=== PATIENT | male | born 1980 | race Caucasian/White ===

== ENCOUNTER 2018-01-24 04:03 | Emergency (ER) | payer OTHER ==
[~2018-01-24] VITALS: Ht 185.4 cm; Wt 99.8 kg
--- NOTE | 2018-01-24 04:25 | NUR ---
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 PT IS AMBULATORY WT SLIGHT WEAKNESS, A/O X 3. ON ROOM AIR WT 02 SAT 96% AND ABOVE. NO C/O PAIN AT THIS TIME. PLACED ON GURNEY AND CONNECTED TO MANAGER COPY. VS TAKEN. AWAITING FOR MD EXAMINATION. SAFETY PRECAUTION NOTED.
--- NOTE | 2018-01-24 04:40 | NUR ---
DR. LUNSFORD AT BEDSIDE TO EXAMINE PT.
[2018-01-24 05:45] LABS: BASOPHILS % (AUTO) 0.3 % (0.0-2.0); EOSINOPHILS % (AUTO) 1.5 % (0.0-6.0); HEMATOCRIT 44 % (39-51); HEMOGLOBIN 14.6 g/dL (13.5-17.5); LYMPHOCYTES # (AUTO) 1.6 /CMM (0.8-4.8); LYMPHOCYTES % (AUTO) 20.3 % (20.0-44.0); MEAN CORPUSCULAR HGB CONC 33 g/dl (31.0-36.0); MEAN CORPUSCULAR VOLUME 85 fL (80-96); MONOCYTES # (AUTO) 0.6 /CMM (0.1-1.30); MONOCYTES % (AUTO) 7.2 % (2.0-12.0); NEUTROPHILS # (AUTO) 5.7 /CMM (1.8-8.9); NEUTROPHILS % (AUTO) 70.7 % (43.0-81.0); PLATELET COUNT (AUTO) 220 /CMM (150-450); RDW COEFFICIENT OF VARIATION 13.4 (11.5-15.0); RED BLOOD CELL COUNT(AUTO) 5.22 MIL/uL (4.5-6.0); WHITE BLOOD COUNT (AUTO) 8.1 K/uL (4.3-11.0)
--- NOTE | 2018-01-24 05:55 | NUR ---
LAC GAUGE 20 IV SITE INSERTED WT GOOD BLOOD RETURN. BLOOD DRAWN. 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 Addendum: 01/24/18 at 0607 by SCORDERO LEFT AC GAUGE 18 INSERTED (NOT GAUGE 20).
[2018-01-24] MEDS: IV NS 0.9% 1,000 ML BAG IV ONE (05:56)
[2018-01-24 05:57] LABS: CALCIUM, SERUM 8.5 mg/dL (8.5-10.1); CARBON DIOXIDE 26 mmol/L (21-32); CHLORIDE 102 mmol/L (98-107); CREATININE 1.3 mg/dL (0.6-1.3); GLUCOSE 143 mg/dL (74-106); POTASSIUM 3.3 mmol/L (3.5-5.1); SODIUM SERUM 137 mmol/L (136-145); UREA NITROGEN, BLOOD 24 mg/dL (7-18)
[2018-01-24 06:05] LABS: ALANINE AMINOTRANSFERASE 45 U/L (12-78); ALBUMIN 4.1 g/dL (3.4-5.0); ALKALINE PHOSPHATASE 53 U/L (46-116); ASPARTATE AMINOTRANSFERASE 22 U/L (15-37); BILIRUBIN,DIRECT 0.1 mg/dL (0.0-0.2); BILIRUBIN,TOTAL 0.5 mg/dL (0.2-1.0); TOTAL PROTEIN, SERUM 7.4 g/dL (6.4-8.2)
[2018-01-24 06:06] LABS: ACETAMINOPHEN 0 ug/ml (10-30); ALCOHOL, BLOOD < 3 mg/dL (0-0); SALICYLATE 1.1 mg/dL (2.8-20.0)
[2018-01-24 06:16] LABS: APPEARANCE,URINE CLEAR (CLEAR); BILIRUBIN,URINE NEGATIVE (NEGATIVE); BLOOD, URINE NEGATIVE Ery/uL (NEGATIVE); COLOR,URINE YELLOW (YELLOW); KETONES,URINE NEGATIVE (NEGATIVE); LEUKOCYTE ESTERASE ,URINE NEGATIVE (NEGATIVE); NITRITE, URINE NEGATIVE (NEGATIVE); PROTEIN,URINE NEGATIVE (NEGATIVE); UGLUCOSE NEGATIVE (NEGATIVE); UROBILINOGEN,URINE 0.2 EU/dL (0.2)
[2018-01-24] MEDS ORDERED: POTASSIUM CHLORIDE 20 MEQ TAB.PRT.SR PO ONE ×2 (06:27→06:30)
--- NOTE | 2018-01-24 06:30 | NUR ---
DR. LOU AT BEDSIDE TO FURTHER EVALUATE PT.
[2018-01-24] MEDS ORDERED: LORAZEPAM INJ 2 MG/ML VIAL ONE (06:43)
[2018-01-24] MEDS ORDERED: LORAZEPAM INJ 2 MG/ML VIAL IV ONE (07:00)
--- NOTE | 2018-01-24 08:43 | NUR ---
Pt alert and oriented x 4. Pt found in supine position. Easily arousable and no respiratory distress. Vital signs taken. Attempted to walk pt. Pt complains of dizziness and unstable on feet after attempt to walk. MD Asher notified. Pt return to bed and placed on rn cardiac rehab. Will continue to monitor pt.
--- NOTE | 2018-01-24 09:45 | NUR ---
PT ALERT ORIENTED ABLE TO WALK WITH STEADY GAIT PT WANTS TO USE uBER TO GO HOME MD LOU AWARE AND APPROVES OF PLAN PIV REMOVED FROMLEFT AC WITH TIP INTACT
[2018-01-24 09:54] VITALS: BP 119/56
== END 2018-01-24 09:55 | disposition home or self-care (01) ==
LOC: ER 04:14
DX: T40.7X5A Adverse effect of cannabis (derivatives), initial encounter (principal); G93.40 Encephalopathy, unspecified; F41.9 Anxiety disorder, unspecified; Z87.891 Personal history of nicotine dependence; Y92.89 Other specified places as the place of occurrence of the external cause
CPT/HCPCS: 36415; 80048; 80076; 80305; 80329; 81001; 85025; 93005; 96374; 99291; A4606; G0480 ×2; J2060; J7030; Z7610; 81000-TC

== ENCOUNTER 2018-01-24 10:44 | Emergency (ER) | payer OTHER ==
[~2018-01-24] VITALS: Ht 188 cm; Wt 99.8 kg
--- NOTE | 2018-01-24 11:05 | NUR ---
[facility] CALL AFTER DISCHARGE BESS AFTER DISCHARGE PT RETURNED TO ED AFTER DISCHARGE FOR WEAKNESS ALEXIS KEENAN PT ALERT WITH ORIENTATION X 4 NEED WHEEL CHAIR TO PLACE IN [facility].
--- NOTE | 2018-01-24 14:05 | NUR ---
PT UP AND BACK TO BATHROOM MD SPOKE WITH PT PT UNSTEADY GAIT PLACED BACK ON RELIEF PHARMACIST
[2018-01-24 16:39] VITALS: BP 114/56
== END 2018-01-24 16:39 | disposition home or self-care (01) ==
LOC: ER 10:48
DX: T42.4X1A Poisoning by benzodiazepines, accidental (unintentional), initial encounter (principal); F41.9 Anxiety disorder, unspecified; Y92.89 Other specified places as the place of occurrence of the external cause
CPT/HCPCS: 99283; A4606; Z7610